=== PATIENT | female | born 1975 | race Caucasian/White ===

== ENCOUNTER 2018-02-04 04:48 | Observation (INO) ==
[2018-02-04] MEDS ORDERED: ONDANSETRON 4 MG/2 ML VIAL IV PRN ×2 (05:03→09:55)
[2018-02-04 05:26] LABS: Basophils % 0.3 % (0.0-0.8); Eosinophils % 0.2 % (0.00-10.9); Hematocrit 35.2 VOL% (35.7-47.0); Hemoglobin 12.1 GM/DL (12.0-16.0); Immature Granulocytes % 0.3 %; Immature Granulocytes Absolute 0.03 #; Lymphocytes % 22.6 % (21.3-54.2); Mean Corpuscular HGB Conc 34.4 GM/DL (32-36); Mean Corpuscular Hemoglobin 32 PG (27-34); Mean Corpuscular Volume 91.9 FL (87-102); Monocytes # 0.5 10*3/uL (0.11-0.8); Monocytes % 5.4 % (1.7-12.7); Neutrophils # 6.1 10*3/uL (1.4-7.4); Neutrophils % 71.2 % (38.7-73.9); Platelet Count 168 T/CUMM (130-400); Red Blood Count 3.83 MC/CUMM (3.8-5.5); Red Cell Distribution Width 13.2 % (9.3-17.3); White Blood Count 8.6 T/CUMM (4-12)
[2018-02-04] MEDS ORDERED: DEXTROSE 5% LACTATED RINGERS 1,000 ML IV SCH (05:30)
[2018-02-04] MEDS ORDERED: cefOXitin 2,000 MG in SYRINGE 1 EACH IV ONE (07:21)
[2018-02-04] MEDS ORDERED: BUPIVACAINE 0.25% /EPI 10 ML VIAL ONE (08:55)
[2018-02-04] MEDS ORDERED: TISSUE ADHESIVE 1 EACH APPLICATOR TOP ONE (08:55)
[2018-02-04] MEDS ORDERED: LIDOCAINE 1%/EPI INJ 20 ML VIAL ONE (08:55)
[2018-02-04] MEDS ORDERED: PANTOPRAZOLE 40 MG TABLET PO SCH (09:00)
[2018-02-04] MEDS ORDERED: PROMETHAZINE 25 MG/1 ML VIAL IM PRN (09:55)
[2018-02-04] MEDS ORDERED: HYDROmorphone 2 MG/1 ML VIAL IV PRN ×2 (09:55→10:22)
[2018-02-04] MEDS ORDERED: fentaNYL 100 MCG/2 ML VIAL ONE (10:16)
[2018-02-04] MEDS ORDERED: MIDAZOLAM 2 MG/2 ML VIAL ONE (10:16)
[2018-02-04] MEDS ORDERED: ONDANSETRON 4 MG/2 ML VIAL ONE (10:16)
[2018-02-04] MEDS ORDERED: PROPOFOL 200 MG/20 ML VIAL IV ONE (10:16)
[2018-02-04] MEDS ORDERED: SEVOFLURANE 1 UNIT/15 MINUTE INH ONE (10:16)
[2018-02-04] MEDS ORDERED: ROCURONIUM 100 MG/10 ML VIAL IV ONE (10:17)
[2018-02-04] MEDS ORDERED: GLYCOPYRROLATE 0.4 MG/2 ML VIAL ONE (10:17)
[2018-02-04] MEDS ORDERED: NEOSTIGMINE 10 MG/10 ML VIAL ONE (10:17)
[2018-02-04] MEDS ORDERED: KETOROLAC 30 MG/1 ML VIAL ONE (10:17)
[2018-02-04] MEDS ORDERED: ACETAMINOPHEN 1,000 MG/100 ML VIAL IV ONE (10:17)
[2018-02-04 14:43] VITALS: BP 106/68
== END 2018-02-04 15:00 | disposition home or self-care (01) ==
LOC: N.ED 04:48 → INTOOBSV 05:03 → N.EDINP 05:03 → N.3E 05:42
PROVIDERS: ADMIT Surgery; ATTEND Surgery